=== PATIENT | male | born 1990 | race Caucasian/White ===

== ENCOUNTER 2018-11-14 11:01 | Emergency (ER) | payer OTHER, SELFPAY ==
[2018-11-14 11:04] VITALS: BP 135/83; PULSE 87; RESP 16; TEMP 36.4; O2SAT 99
--- NOTE | 2018-11-14 11:08 | PC.NURSE ---
uses chewing tobacco
[2018-11-14 11:36] VITALS: BP 118/65; PULSE 56; RESP 18; O2SAT 100
--- NOTE | 2018-11-14 12:01 | ED_ITS ---
HPI - Wound/Laceration General Chief Complaint: Wound/Laceration Stated Complaint: Left hand cut Time Seen by Provider: 11/14/18 11:04 Source: patient and family Mode of arrival: ambulatory Limitations: no limitations History of Present Illness HPI narrative: 28 MFormer smoker, otherwise healthy presents with a work related laceration to his left hand. He was using a heavy metal object which he ran his left hand into suffering a small laceration to the lateral aspect of his left hand. There was bleeding but not significant. He has full range of motion. There is little to no likelihood of foreign body per the patient's impression. His tetanus is current Onset (ago): minute(s) Extremity Location: Left: hand Place: work Patient tetanus UTD: Yes Context: accidental Associated symptoms: pain Treatments prior to arrival: bandage Related Data Home Medications Medication Instructions Recorded Confirmed No Known Home Medications 11/14/18 11/14/18 Allergies Allergy/AdvReac Type Severity Reaction Status Date / Time No Known Drug Allergies Allergy Verified 11/14/18 11:08 Review of Systems Constitutional Denies chills, Denies fever(s), Denies lethargy and Denies weakness Eyes Denies change in vision, Denies eye discharge, Denies irritation and Denies loss of vision ENT Ears, Nose, Mouth, and Throat: Denies change in voice, Denies neck pain and Denies sore throat Cardiovascular Denies chest pain, Denies irregular heart rhythm, Denies lightheadedness, Denies palpitations, Denies dyspnea, Denies dyspnea on exertion and Denies orthopnea Respiratory Denies cough, Denies dyspnea, Denies dyspnea on exertion and Denies wheezing Gastrointestinal Gastrointestinal: Denies abdominal pain, Denies change in bowel habits, Denies diarrhea, Denies nausea and Denies vomiting Genitourinary Denies hematuria, Denies flank pain, Denies urinary incontinence and Denies urinary urgency Musculoskeletal Denies neck pain Integumentary/Breasts Denies pruritus, Denies erythema, Denies rash and Reports wounds Neurologic Denies confusion, Denies loss of vision and Denies weakness Psychiatric Denies anxiety, Denies confusion, Denies depression, Denies homicidal ideation and Denies suicidal ideation Endocrine Denies palpitations Hematologic/Lymphatic Denies easy bruising Allergic/Immunologic Denies wheezing [facility] Social History Smoking Status: Former smoker Social History Smoking Status: Former smoker Exam Narrative Exam Narrative: GEN: 28M AOx3 and in mild distress EYES: Pupils are equal, round, and reactive to light and accommodation. Extraoccular muscles are intact bilaterally. There is no subconjunctival hemorrhage or exudate. CHEST: Lungs are clear to auscultation bilaterally and free of wheezes, rales, or rhonchi. Heart rate is regular rhythm, there are no murmurs, clicks, rubs, or gallops. There is no chest wall tenderness. ABD: Abdomen is soft and nontender. There is no guarding or rebound. Bowel sounds are normal in all 4 quadrants. There is no mass or organomegaly. EXT: Full painless ROM of all extremities with no loss of sensation or strength. SKIN: 1.5cm irregular laceration at base of index finger, just lateral to MCP. Superficial, minimal bleeding. Initial Vital Signs Initial Vital Signs: Vital Signs Temperature 97.5 F L 11/14/18 11:04 Pulse Rate 87 11/14/18 11:04 Respiratory Rate 16 11/14/18 11:04 Blood Pressure 135/83 11/14/18 11:04 Pulse Oximetry 99 11/14/18 11:04 Procedures Laceration Repair Laceration 1: Site: hand Side (If applicable): left Size (cm): 1.5 Description: stellate Depth: simple, single layer Local Anesthetic: lidocaine 1% and with bicarb Amount of anesthesia used (mL): 1.5 Pre-repair: wound explored Skin layer closed with: nylon Size (cm): 4-0 Number of sutures: 5 Technique: simple, interrupted Course Vital Signs - 8 hr 11/14/18 11:04 11/14/18 11:36 Temperature 97.5 F L Pulse Rate 87 56 L Respiratory Rate 16 18 Blood Pressure 135/83 Blood Pressure [Right Arm] 118/65 Pulse Oximetry 99 100 Discharge Plan Departure Patient Disposition: Home Clinical Impression: Laceration Instructions: DI for Laceration Repair Activity Restrictions/Additional Instructions: Please keep the wound clean and dry to the best of your ability. Please monitor for signs of infection such as redness to the skin or increasing pain. Have the sutures removed by your doctor in about 7 days. If you are unable to get into your doctor, we would be happy to remove the sutures in that same timeframe. Prescriptions: No Action No Known Home Medications RF: 0
== END 2018-11-14 12:07 | disposition home or self-care (01) ==
PROVIDERS: Emergency Provider Emergency Medicine
DX: S61.412A Laceration without foreign body of left hand, initial encounter (principal); W26.8XXA Contact with other sharp object(s), not elsewhere classified, initial encounter; Y99.0 Civilian activity done for income or pay
CPT/HCPCS: 12001; 99282; 99283